=== PATIENT | female | born 1950 | race Caucasian/White ===

== ENCOUNTER 2020-04-24 05:06 | Inpatient (IN) | payer OTHER ==
[~2020-04-24] VITALS: Ht 154.9 cm; Wt 91.6 kg
--- NOTE | 2020-04-24 05:11 | NUR ---
C/O PALPITATION. HAD SVT ON THE SCENE W/ HR-223, ADENOSINE 12MG GIVEN BY EMS LYE TREATER. NOW C/O LIGHTHEADEDNESS. PT AAOX4 NO ACUTE DISTRESS NOTED, RESP EVEN AND UNLABORED. PLACE PT ON CARDIAC MONITORING, CONITNUOUS POX. ER MD AT BEDSIDE TO EVAL PT WITH ORDERS RECEIVED.
[2020-04-24 05:24] LABS: BASOPHILS # (AUTO) 0.1 /CMM (0.0-0.2); BASOPHILS % (AUTO) 1.1 % (0.0-2.0); EOSINOPHILS % (AUTO) 2.5 % (0.0-6.0); HEMATOCRIT 45 % (33-45); HEMOGLOBIN 14.6 g/dL (11.5-14.8); LYMPHOCYTES # (AUTO) 2.7 /CMM (0.8-4.8); LYMPHOCYTES % (AUTO) 31.1 % (20.0-44.0); MEAN CORPUSCULAR HGB CONC 32 g/dl (31.0-36.0); MEAN CORPUSCULAR VOLUME 94 fL (82-100); MONOCYTES # (AUTO) 0.5 /CMM (0.1-1.30); MONOCYTES % (AUTO) 5.8 % (2.0-12.0); NEUTROPHILS # (AUTO) 5.2 /CMM (1.8-8.9); NEUTROPHILS % (AUTO) 59.5 % (43.0-81.0); PLATELET COUNT (AUTO) 317 /CMM (150-450); WHITE BLOOD COUNT (AUTO) 8.8 K/uL (4.3-11.0)
[2020-04-24 05:31] LABS: CALCIUM, SERUM 9.1 mg/dL (8.5-10.1); CARBON DIOXIDE 27 mmol/L (21-32); CHLORIDE 97 mmol/L (98-107); CREATININE 1.4 mg/dL (0.6-1.3); GLUCOSE 311 mg/dL (74-106); POTASSIUM 3.9 mmol/L (3.5-5.1); SODIUM SERUM 134 mmol/L (136-145); UREA NITROGEN, BLOOD 14 mg/dL (7-18)
--- NOTE | 2020-04-24 05:35 | NUR ---
PAGED [facility]--DR RESTREPO
--- NOTE | 2020-04-24 05:46 | NUR ---
BED 324-1
[2020-04-24] MEDS ORDERED: HYDR25TA4 PO (05:56)
[2020-04-24] MEDS ORDERED: METF-440 PO (05:56)
[2020-04-24] MEDS ORDERED: LISI40TA4 PO (05:56)
[2020-04-24] MEDS ORDERED: HYDROCODONE/APAP 5/325MG 1 EACH TABLET PO PRN (06:00)
[2020-04-24] MEDS ORDERED: ZOLPIDEM TARTRATE 5 MG TABLET PO PRN (06:00)
[2020-04-24] MEDS ORDERED: MAGNESIUM HYDROXIDE 30 ML UDC PO PRN (06:00)
[2020-04-24] MEDS ORDERED: Z GUARD REMEDY 2 OZ OINT TP PRN (06:00)
[2020-04-24] MEDS ORDERED: ONDANSETRON HCL/PF 4 MG/2 ML VIAL IVP PRN (06:00)
[2020-04-24] MEDS ORDERED: IV NS 0.9% 1,000 ML IV ONE (06:00)
[2020-04-24] MEDS ORDERED: ACETAMINOPHEN 325 MG TABLET PO PRN (06:00)
[2020-04-24] MEDS ORDERED: MAG HYDROX/AL HYDROX/SIMETH 30 ML UDC PO PRN (06:00)
--- NOTE | 2020-04-24 06:05 | NUR ---
REPORT GIVEN TO KHARI WESLEY FOR REJI; PT WILL BE TRANSPORTED TO 3RD FLOOR
[2020-04-24 06:30] VITALS: BP 141/93
--- NOTE | 2020-04-24 06:32 | NUR ---
PT WAS TRANSFERRED TO 324 UNDER ACLS
[2020-04-24 06:34] LABS: MAGNESIUM 1.4 mg/dL (1.8-2.4); PHOSPHORUS 3.4 mg/dL (2.5-4.9)
--- NOTE | 2020-04-24 06:45 | NUR ---
SLIP PRESSER OPENING NOTES: RECEIVED PT ON ROOM AIR AND IS TOLERATING WELL. NO SOB NOTED. NO S/S OF DISTRESS. PT HAS IV ON R AC #18 AND HAS BEEN FLUSHED. IS PATENT AND INTACT. PT PLACED ON TELE BOX AND READING SHOWS ST 110 AT THIS TIME. BED KEPT IN LOW, LOCKED POSITION, AND SIDE RAILS X 2UP. BED ALARM ACTIVATED. CALL LIGHT WITHIN REACH. INSTRUCTED PT TO USE CALL LIGHT. WILL ENDORSE TO AM NURSE FOR REJI.
[2020-04-24 06:49] VITALS: BP 141/83
--- NOTE | 2020-04-24 07:07 | NUR ---
ACTIVITIES SPECIALIST CLOSING NOTES: ENDORSED TO AM NURSEKYRSTLE RN FOR REJI.
--- NOTE | 2020-04-24 07:30 | NUR ---
Tele/RN Opening Received patient as new admission, AO x 3-4, able to responds all stimuli. Denies chest pain or any discomfort, skin is warm to touch, kept clean/dry. Respiratory even and unlabored in room air, patient removed oxygen N/C. Keep bed in lock with low position and elevated head of bed for secure airway. Call light within reach, will continue to monitor.
[2020-04-24 08:00] VITALS: BP 142/77
[2020-04-24] MEDS ORDERED: ENOXAPARIN SODIUM 40 MG/0.4 ML DISP.SYRIN SQ SCH (09:30)
[2020-04-24] MEDS: Magnesium 1GM/D5W 100ML PREMIX 100 ML IV SCH ×2 (09:42→10:55)
[2020-04-24] MEDS: ENOXAPARIN SODIUM 30 MG/0.3 ML DISP.SYRIN SQ SCH (09:43)
[2020-04-24 12:00] VITALS: BP 156/89
[2020-04-24] MEDS ORDERED: DEXTROSE 50%-WATER 50 ML DISP.SYRIN IV PRN (15:00)
[2020-04-24] MEDS ORDERED: INSULIN REGULAR, HUMAN 100 UNIT/ML 3 ML VIAL SQ PRN (15:00)
[2020-04-24] MEDS ORDERED: HYDROCHLOROTHIAZIDE 25 MG TABLET PO SCH (15:00)
[2020-04-24] MEDS: METOPROLOL TARTRATE 25 MG TABLET PO SCH ×2 (15:24→21:40)
[2020-04-24] MEDS: ASPIRIN 325 MG TABLET PO SCH (15:24)
[2020-04-24 16:00] VITALS: BP 125/60
[2020-04-24] MEDS ORDERED: METFORMIN 500 MG TABLET PO SCH (17:00)
[2020-04-24] MEDS: BLOOD SUGAR DIAGNOSTIC 1 EACH STRIP VI SCH ×2 (17:23→22:23)
[2020-04-24] MEDS: *INSULIN REGULAR(HUMULIN R)HUM 100 UNIT/ML VIAL SQ PRN ×2 (17:24→22:25)
--- NOTE | 2020-04-24 18:30 | NUR ---
Tele/RN Closing note Patient in bed comfortably, denies chest pain, palpitation or discomfort, skin is warm to touch, keep clean/dry, intact new IV site. Respiratory even and unlabored in room air. Keep bed in lock wheel with low position and elevated head of bed for secure airway. Call light within reach, will endorse shift mechanic.
--- NOTE | 2020-04-24 19:56 | NUR ---
AUTOMATIC HEMMER NOTES: RECEIVED PT ON ROOM AIR AND IS TOLERATING WELL. NO SOB NOTED. NO S/S OF DISTRESS. PT HAS IV ON R AC #18 AND HAS BEEN FLUSHED. IS PATENT AND INTACT. PT PLACED ON TELE BOX AND READING SHOWS ST 110 AT THIS TIME. BED KEPT IN LOW, LOCKED POSITION, AND SIDE RAILS X 2UP. BED ALARM ACTIVATED. CALL LIGHT WITHIN REACH. ASPIRATION PRECAUTION EMPHASIZE/WILL CONTINUE TO MONITOR ACCORDINGLY.
[2020-04-24 20:00] VITALS: BP 132/68
[2020-04-25] VITALS: BP 125/67
[2020-04-25 04:00] VITALS: BP 148/64
--- NOTE | 2020-04-25 06:08 | NUR ---
RN NOTES ALL NEEDS ATTENDED AND MET, ABLE TO REST AND SLEPT AT INTERVALS, SAFETY MEASURES IN PLACE, CALL LIGHT WITH IN EASY REACH. DENIES ANY PAIN AT THIS TIME. WILL ENDORSE TO AM NURSE FOR CONTINUITY OF CARE.
[2020-04-25] MEDS: BLOOD SUGAR DIAGNOSTIC 1 EACH STRIP VI SCH ×2 (06:57→12:12)
--- NOTE | 2020-04-25 07:30 | NUR ---
Tele/RN Opening note Received patient AOx4, able to responds all stimuli, skin is warm to touch, clean/dry. Denied pain or any discomfort. Respiratory even and unlabored in room air. Keep bed in lock with low position of the bed and elevated head of bed foe secure airway. Call light within reach, will continue to monitor.
[2020-04-25 07:34] LABS: BASOPHILS % (AUTO) 0.6 % (0.0-2.0); EOSINOPHILS % (AUTO) 2.6 % (0.0-6.0); HEMATOCRIT 41 % (33-45); HEMOGLOBIN 13.3 g/dL (11.5-14.8); LYMPHOCYTES # (AUTO) 2.5 /CMM (0.8-4.8); LYMPHOCYTES % (AUTO) 32.4 % (20.0-44.0); MEAN CORPUSCULAR HGB CONC 33 g/dl (31.0-36.0); MEAN CORPUSCULAR VOLUME 93 fL (82-100); MONOCYTES # (AUTO) 0.6 /CMM (0.1-1.30); NEUTROPHILS # (AUTO) 4.3 /CMM (1.8-8.9); NEUTROPHILS % (AUTO) 56.4 % (43.0-81.0); PLATELET COUNT (AUTO) 299 /CMM (150-450); WHITE BLOOD COUNT (AUTO) 7.6 K/uL (4.3-11.0)
[2020-04-25 07:59] LABS: ALBUMIN 3.2 g/dL (3.4-5.0); BILIRUBIN,TOTAL 0.3 mg/dL (0.2-1.0); CALCIUM, SERUM 8.7 mg/dL (8.5-10.1); CREATININE 1.1 mg/dL (0.6-1.3); MAGNESIUM 1.7 mg/dL (1.8-2.4); POTASSIUM 3.9 mmol/L (3.5-5.1); TOTAL PROTEIN, SERUM 6.5 g/dL (6.4-8.2)
[2020-04-25 08:00] VITALS: BP 164/63
[2020-04-25] MEDS: ASPIRIN 325 MG TABLET PO SCH (08:30)
[2020-04-25 08:31] VITALS: BP 143/86
[2020-04-25] MEDS: ENOXAPARIN SODIUM 30 MG/0.3 ML DISP.SYRIN SQ SCH (08:33)
[2020-04-25] MEDS ORDERED: Medication Not On Formulary EA (Lisinopril 40 MG) PO SCH (09:00)
[2020-04-25] MEDS ORDERED: METOPROLOL TARTRATE 25 MG TABLET PO SCH (09:00)
[2020-04-25] MEDS ORDERED: Magnesium 1GM/D5W 100ML PREMIX 100 ML IV SCH (11:13)
[2020-04-25] MEDS ORDERED: METO25TA20 PO (11:28)
[2020-04-25] MEDS ORDERED: ASPI-605 PO (11:28)
[2020-04-25] MEDS: *INSULIN REGULAR(HUMULIN R)HUM 100 UNIT/ML VIAL SQ PRN (12:13)
--- NOTE | 2020-04-25 17:00 | NUR ---
Given discharge instruction include machine operator picker prescription/side effect, and f/u with Dr. Ford in 1week, pt verbally understanding. Denies pain or discomfort in sable condition and accompanied by staff to the private car.
--- NOTE | 2020-04-25 17:00 | NUR ---
Given discharge instruction include cigar packer and picker prescription/side effect, pt verbally understanding. Denies pain or discomfort in sable condition and accompanied by staff to the private car. Addendum: 04/25/20 at 1817 by KRYSTLE POZO RN error
== END 2020-04-25 18:00 | disposition home or self-care (01) | DRG 280 ==
LOC: ER 05:07 → TELE 05:51
PROVIDERS: ADMIT Internal Medicine; ATTEND Internal Medicine
DX: I47.1 Supraventricular tachycardia (principal); N17.0 Acute kidney failure with tubular necrosis; I21.A1 Myocardial infarction type 2; E87.1 Hypo-osmolality and hyponatremia; E83.42 Hypomagnesemia; E11.22 Type 2 diabetes mellitus with diabetic chronic kidney disease; I12.9 Hypertensive chronic kidney disease with stage 1 through stage 4 chronic kidney disease, or unspecified chronic kidney disease; N18.9 Chronic kidney disease, unspecified; Z79.84 Long term (current) use of oral hypoglycemic drugs; Z79.899 Other long term (current) drug therapy; E11.9 Type 2 diabetes mellitus without complications; E66.01 Morbid (severe) obesity due to excess calories; E86.1 Hypovolemia
CPT/HCPCS: 36415; 71045-TC; 80048-TC; 80053-TC; 80061-TC; 82962-TC; 83735-TC; 84100-TC; 84484-TC; 85025-TC; 87081-TC; 93307-TC; G0378; J1650; J1815; J3475; J7030

== ENCOUNTER 2022-08-22 15:30 | Emergency (ER) | payer SELFPAY ==
[~2022-08-22] VITALS: Ht 154.9 cm; Wt 99.8 kg
[~2022-08-22 15:30] MED LIST: ASPI-605 PO; HYDR25TA4 PO; LISI40TA13 PO; METF-440 PO; METO25TA20 PO
--- NOTE | 2022-08-22 15:30 | NUR ---
RECEIVED PT 72 YRS FEMALE CAME FROM HOME came by ashley c/o palption and chest pressure pt was SVT CONVERTED TO SR-ST HR 104B/MIN
[2022-08-22] MEDS ORDERED: METO50TA16 PO (15:54)
[2022-08-22] MEDS ORDERED: CAND16TA13 PO (15:54)
[2022-08-22] MEDS ORDERED: SITA100T PO (15:54)
[2022-08-22 16:22] LABS: BASOPHILS # (AUTO) 0.1 K/uL (0.0-0.2); BASOPHILS % (AUTO) 0.4 % (0.0-2.0); EOSINOPHILS % (AUTO) 2.3 % (0.0-6.0); HEMATOCRIT 41 % (33-45); HEMOGLOBIN 13.4 g/dL (11.5-14.8); LYMPHOCYTES # (AUTO) 1.6 K/uL (0.8-4.8); MEAN CORPUSCULAR HGB CONC 32 g/dl (31.0-36.0); MEAN CORPUSCULAR VOLUME 89 fL (82-100); MONOCYTES # (AUTO) 0.7 K/uL (0.1-1.30); MONOCYTES % (AUTO) 5.1 % (2.0-12.0); NEUTROPHILS # (AUTO) 10.5 K/uL (1.8-8.9); NEUTROPHILS % (AUTO) 80.2 % (43.0-81.0); PLATELET COUNT (AUTO) 303 K/uL (150-450); RED BLOOD CELL COUNT(AUTO) 4.66 MIL/uL (4.0-5.2); WHITE BLOOD COUNT (AUTO) 13.1 K/uL (4.3-11.0)
[2022-08-22 16:42] LABS: CALCIUM, SERUM 9.6 mg/dL (8.5-10.1); CARBON DIOXIDE 27 mmol/L (21-32); CHLORIDE 101 mmol/L (98-107); CREATININE 1.3 mg/dL (0.6-1.3); GLUCOSE 285 mg/dL (74-106); POTASSIUM 3.9 mmol/L (3.5-5.1); SODIUM SERUM 136 mmol/L (136-145); UREA NITROGEN, BLOOD 19 mg/dL (7-18)
--- NOTE | 2022-08-22 17:00 | NUR ---
UA SENT TO LAB
--- NOTE | 2022-08-22 17:15 | NUR ---
COVID SWAB DONE AND SENT TO LAB
--- NOTE | 2022-08-22 18:06 | NUR ---
room assigned 304.1
--- NOTE | 2022-08-22 18:21 | NUR ---
PT REFUSED TO BE ADMITED AND IN PT DR. DAVIS AWAKE AND SPOOK WITH PT ABOUT PLAN OF CARE PT SIGN AMA
--- NOTE | 2022-08-22 18:28 | NUR ---
D/C HL DONE PRESSURE APPLED NO ACTIVE BLEEDING ON SITE
--- NOTE | 2022-08-22 18:29 | NUR ---
Patient discharged to home in stable condition. Written and verbal after care instructions given. Patient verbalizes understanding of instruction.
[2022-08-22 18:33] VITALS: BP 125/75
== END 2022-08-22 18:34 | disposition left against medical advice (07) ==
LOC: ER 15:38
DX: R07.9 Chest pain, unspecified (principal); I47.1 Supraventricular tachycardia; Z20.822 Contact with and (suspected) exposure to COVID-19; Z53.29 Procedure and treatment not carried out because of patient's decision for other reasons; I10 Essential (primary) hypertension; E11.9 Type 2 diabetes mellitus without complications; Z79.84 Long term (current) use of oral hypoglycemic drugs; Z79.899 Other long term (current) drug therapy; Z79.82 Long term (current) use of aspirin
CPT/HCPCS: 99285; 71045; 87426; 93005; 85025; 80048; 36415; 84484; 87081; C9803

== ENCOUNTER 2022-10-02 17:39 | Emergency (ER) | payer OTHER ==
[~2022-10-02] VITALS: Ht 154.9 cm; Wt 95.3 kg
[~2022-10-02 17:39] MED LIST changes: -ASPI-605 PO; +CAND16TA13 PO; -METO25TA20 PO; +METO50TA16 PO; +SITA100T PO
[2022-10-02 19:06] LABS: CALCIUM, SERUM 8.8 mg/dL (8.5-10.1); CARBON DIOXIDE 28 mmol/L (21-32); CHLORIDE 104 mmol/L (98-107); CREATININE 1.1 mg/dL (0.6-1.3); GLUCOSE 237 mg/dL (74-106); POTASSIUM 4.3 mmol/L (3.5-5.1); SODIUM SERUM 138 mmol/L (136-145); UREA NITROGEN, BLOOD 23 mg/dL (7-18)
[2022-10-02 20:16] LABS: BASOPHILS % (AUTO) 0.4 % (0.0-2.0); EOSINOPHILS % (AUTO) 1.7 % (0.0-6.0); HEMATOCRIT 39 % (33-45); HEMOGLOBIN 12.6 g/dL (11.5-14.8); LYMPHOCYTES # (AUTO) 1.9 K/uL (0.8-4.8); LYMPHOCYTES % (AUTO) 17.6 % (20.0-44.0); MEAN CORPUSCULAR HGB CONC 33 g/dl (31.0-36.0); MEAN CORPUSCULAR VOLUME 88 fL (82-100); MONOCYTES # (AUTO) 0.8 K/uL (0.1-1.30); MONOCYTES % (AUTO) 7.7 % (2.0-12.0); NEUTROPHILS # (AUTO) 7.8 K/uL (1.8-8.9); NEUTROPHILS % (AUTO) 72.6 % (43.0-81.0); PLATELET COUNT (AUTO) 299 K/uL (150-450); WHITE BLOOD COUNT (AUTO) 10.8 K/uL (4.3-11.0)
[2022-10-02 22:04] VITALS: BP 113/64
--- NOTE | 2022-10-02 22:04 | NUR ---
Patient discharged to home in stable condition. Written and verbal after care instructions given. Patient verbalizes understanding of instruction.
--- NOTE | 2022-10-02 22:04 | NUR ---
IV removed. Catheter intact and site benign. Pressure and 4x4 applied to site. No bleeding noted.
== END 2022-10-02 22:05 | disposition home or self-care (01) ==
LOC: ER 17:53
DX: I47.1 Supraventricular tachycardia (principal); I10 Essential (primary) hypertension; E11.9 Type 2 diabetes mellitus without complications; F17.200 Nicotine dependence, unspecified, uncomplicated; Z79.899 Other long term (current) drug therapy
CPT/HCPCS: 36415; 71045-TC; 80048-TC; 84443-TC; 84484-TC; 85025-TC